=== PATIENT | female | born 1990 | race Caucasian/White ===

== ENCOUNTER 2025-08-08 10:28 | Emergency (ER) | payer OTHER, SELFPAY ==
--- OUTSIDE RECORDS SUMMARY | 2011-10-18 09:30 | XMS_ITS | Continuity of Care Document ---
Author Organization [facility], [facility] Address [address] [place] [id number] Phone Care Team Providers Care Concrete Polisher Name Role Phone Daquan GEE, Jonas Unavailable Unavailable Allergies, Adverse Reactions, Alerts Substance Reaction Status Criticality No Known allergies Procedures Procedure Date EYE EXAM, EXISTING PATIENT VISION REFRACTION OPTIONAL UPDATE EYE EXAM, EXISTING PATIENT VISION REFRACTION UPDATE Single Vision Lens Anti-reflective coating POSTAGE Advance Directives Directive Yes / No Effective Date File Name No Information Encounters Encounter Description Practice Location Reason(s) For Visit Diagnoses Date Provider Providers Copied on Encounter [facility], [address] [place] [address], [id number], tel:[phone] [facility] Myopia Daquan Mcdaniel. [address] [place] [address], [id number], [place]. tel:[phone] [facility], [address] [place] [address], [id number], tel:[phone] [facility] No Information Aprahamikeyon Era. [address] [place] [address], [id number], [place]. tel:[phone] Family History Family Member Type Diagnosis Age At Onset Problem (finding) No Family history of Re tinal Disorders Problem (finding) No Family history of As thma Problem (finding) No Family history of Ca taracts Problem (finding) No Family history of He art Disease Grandmother Problem (finding) Arthritis Problem (finding) No Family history of St rabismus Grandmother Problem (finding) HBP Problem (finding) No Family history of St roke Problem (finding) No Family history of Gl aucoma Grandmother Problem (finding) Diabetes mellitus Problem (finding) No Family history of Re spiratory Disease Problem (finding) No Family hist ory of Macular Degeneration Payers Payer name Insurance type Covered constitution party ID Authoriza tion(s) [facility] [id number] Social History Type Description Quantity Date Captured Comments Alcohol Use Details Unknown Caffeine Use Details Unknown Tobacco Use Status No Information Smoking Status No Information Smoking Tobacco Use Details Cigarette: No Details Available Cigarette: No Details Available Sex Female Chief Complaint And Reason For Visit No Information Reason For Referral Reason For Referral No Information History Of Present Illness Encounter Date Complaint History Of Prese nt Illness No Information Functional Status Date Functional Assessmen t No Information Instructions Date Instruction Additional Infor brooke - Return in 1-2 years with [facility] f or Ref T & D. Related to Myopia Myopia . Condition: established, stable. - Update gls Rx optional. Eyes look healthy. Pt doing well. Related to Myopia Assessments Type Assessment Date No Information Patient Care Teams Name Effective Dates (start - stop) Status Members No Information
--- OUTSIDE RECORDS SUMMARY | 2022-07-25 13:00 | XMS_ITS | Continuity of Care Document ---
Author Organization [employer] [facility] Address [address] [facility] [address] [place] [address] Phone Care Team Providers Care Reflesher Name Role Phone Hannah Gold PT Unavailable Unavailable Procedures Procedure Date Therapeutic Exercise Therapeutic Activities Neuromuscular Re-Ed Manual Therapy Therapeutic Activities Neuromuscular Re-Ed Therapeutic Exercise Manual Therapy Therapeutic Activities Manual Therapy Therapeutic Exercise Neuromuscular Re-Ed Therapeutic Activities Neuromuscular Re-Ed Manual Therapy Therapeutic Exercise Neuromuscular Re-Ed Therapeutic Activities Manual Therapy Therapeutic Exercise Therapeutic Activities Therapeutic Exercise Neuromuscular Re-Ed Manual Therapy Neuromuscular Re-Ed Progress Note Therapeutic Activities Therapeutic Exercise Manual Therapy Therapeutic Activities Manual Therapy Neuromuscular Re-Ed Therapeutic Exercise Therapeutic Activities Manual Therapy Therapeutic Exercise Neuromuscular Re-Ed Therapeutic Exercise Therapeutic Activities Neuromuscular Re-Ed Manual Therapy Therapeutic Exercise Neuromuscular Re-Ed Therapeutic Activities Manual Therapy Therapeutic Activities Neuromuscular Re-Ed Manual Therapy Therapeutic Exercise Progress Note Therapeutic Activities Neuromuscular Re-Ed Therapeutic Exercise Manual Therapy Neuromuscular Re-Ed Manual Therapy Therapeutic Activities Therapeutic Exercise Therapeutic Activities Neuromuscular Re-Ed Therapeutic Exercise Manual Therapy Neuromuscular Re-Ed Therapeutic Activities Manual Therapy Therapeutic Exercise PT Evaluation Moderate Complexity Therapeutic Activities Manual Therapy Therapeutic Exercise Advance Directives Directive Yes / No Effective Date File Name No Information Encounters Encounter Description Practice Location Reason(s) For Visit Diagnoses Date Provider Providers Copied on Encounter [facility], [address], [id number], tel:[phone] [place] No Information Alla Young. . Referring Provider: Gwen Fernández, [address], [place], [address]. tel:[phone] [facility], [address], [id number], tel:[phone] [place] No Information Alla Young. . Referring Provider: Gwen Fernández [address], [place], [address]. tel:[phone] [facility] [facility], [place], [place], [id number], [place] tel:[phone] [place] No Information Richmond Hannah. . Referring Provider: Gwen Pradeep [address], [place], [address]. tel:[phone] [facility], [address], [place], [place], [id number], [place] tel:[phone] [place] No Information Richmond Hannah. . Referring Provider: Gwen Pradeep [address], [place], [address]. tel:[phone] [facility], [address], [place], [place], [id number], [place] tel:[phone] [place] No Information Richmond Hannah. . Referring Provider: Gwen Fernández [address], [place], [address]. tel:[phone] [facility], [address], [place], [place], [id number], [place] tel:[phone] [place] No Information Richmond Hannah. . Referring Provider: Gwen Fernández [address] , [place], [address]. tel:[phone] [facility], [address], [place], [place], [id number], [place] tel:[phone] [place] No Information Richmond Hannah. . Referring Provider: Gwen Fernández [address] , [place], [address]. tel:[phone] [facility], [address], [place], [place], [id number], [place] tel:[phone] [place] No Information Richmond Hannah. . Referring Provider: Gwen Fernández [address], [place], [address]. tel:[phone] [facility], [address], [place], [place], [id number], [place] tel:[phone] [place] No Information Richmond Hannah. . Referring Provider: Gwen Pradeep [address], [place], [address]. tel:[phone] [facility], [address], [place], [place], [id number], [place] tel:[phone] [place] No Information Richmond Hannah. . Referring Provider: Gwen Pradeep [address], [place], [address]. tel:[phone] [facility], [address], [place], [place], [id number], [place] tel:[phone] [place] No Information Richmond Hannah. . Referring Provider: Gwen Fernández [address] , [place], [address]. tel:[phone] [facility], [address], [place], [place], [id number], [place] tel:[phone] [place] No Information Richmond Hannah. . Referring Provider: Gwen Pradeep [address] , [place], [address]. tel:[phone] [facility], [address], [place], [place], [id number], [place] tel:[phone] [place] No Information Richmond Hannah. . Referring Provider: Gwen Fernández [address] , [place], [address]. tel:[phone] [facility], [address], [place], [place], [id number], [place] tel:[phone] [place] No Information Richmond Hannah. . Referring Provider: Gwen Fernández [address], [place], [address]. tel:[phone] [facility], [address], [place], [place], [id number], [place] tel:[phone] [place] No Information Richmond Hannah. . Referring Provider: Gwen Pradeep [address], [place], [address]. tel:[phone] [facility] [address], [place], [place], [id number], tel:[phone] [place] No Information Alla Young. . Referring Provider: Gwen Pradeep [address], [place], [address]. tel:[phone] [facility], [address] [facility] [address], [place], [place], [id number], tel:[phone] [place] No Information Alla Young. . Referring Provider: Gwen Pradeep [address], [place], [address]. tel:[phone] Family History Family Member Type Diagnosis Age At Onset No Information Payers Payer name Insurance type Covered green party ID Authortalisha rodriguez(s) [facility] [id number] Social History Type Description Quantity Date Captured Comments Sex Female Smoking Status No Information Chief Complaint And Reason For Visit No Information Reason For Referral Reason For Referral No Information History Of Present Illness Encounter Date Complaint History Of Prese nt Illness No Information Functional Status Date Functional Assessmen t No Information Instructions Date Instruction Additional Infor mation No Information Assessments Type Assessment Date No Information Patient Care Teams Name Effective Dates (start - stop) Status Members No Information
--- OUTSIDE RECORDS SUMMARY | 2024-02-11 13:00 | XMS_ITS | Continuity of Care Document ---
Author Organization [facility] Address [address] [place] [address] [address] [place] [address] Phone Care Team Providers Care Pathology Laboratory Aide Name Role Phone Dorys Mead PT Unavailable Unavailable Procedures Procedure Date Therapeutic Activities Neuromuscular Re-Ed Therapeutic Exercise Manual Therapy Therapeutic Activities Neuromuscular Re-Ed Therapeutic Exercise Manual Therapy Therapeutic Activities Neuromuscular Re-Ed Therapeutic Exercise Manual Therapy Therapeutic Activities Neuromuscular Re-Ed Therapeutic Exercise Manual Therapy Progress Note Therapeutic Activities Neuromuscular Re-Ed Therapeutic Exercise Manual Therapy Therapeutic Activities Neuromuscular Re-Ed Therapeutic Exercise Manual Therapy Therapeutic Activities Therapeutic Exercise Neuromuscular Re-Ed Manual Therapy Therapeutic Activities Therapeutic Exercise Neuromuscular Re-Ed Manual Therapy Therapeutic Activities Neuromuscular Re-Ed Therapeutic Exercise Manual Therapy Therapeutic Activities Neuromuscular Re-Ed Therapeutic Exercise Manual Therapy Progress Note Therapeutic Activities Neuromuscular Re-Ed Therapeutic Exercise Manual Therapy Therapeutic Activities Neuromuscular Re-Ed Therapeutic Exercise Manual Therapy Therapeutic Activities Neuromuscular Re-Ed Therapeutic Exercise Manual Therapy Therapeutic Activities Neuromuscular Re-Ed Therapeutic Exercise Manual Therapy Therapeutic Activities Neuromuscular Re-Ed Manual Therapy Therapeutic Exercise Therapeutic Activities Neuromuscular Re-Ed Therapeutic Exercise Manual Therapy Therapeutic Activities Neuromuscular Re-Ed Therapeutic Exercise Manual Therapy Therapeutic Activities Neuromuscular Re-Ed Therapeutic Exercise Manual Therapy Therapeutic Activities Neuromuscular Re-Ed Therapeutic Exercise Manual Therapy Therapeutic Activities Neuromuscular Re-Ed Therapeutic Exercise Manual Therapy Therapeutic Activities Neuromuscular Re-Ed Therapeutic Exercise Manual Therapy Progress Note Therapeutic Activities Neuromuscular Re-Ed Therapeutic Exercise Manual Therapy PT Evaluation Low Complexity Therapeutic Activities Neuromuscular Re-Ed Therapeutic Exercise Manual Therapy Advance Directives Directive Yes / No Effective Date File Name No Information Encounters Encounter Description Practice Location Reason(s) For Visit Diagnoses Date Provider Providers Copied on Encounter [facility], [address], [id number], tel:[phone] [place] No Information [place] D[place]. . [facility], [address], [id number], tel:[phone] [place] No Information [place] D[place]s. . [facility], [address], [id number], tel:[phone] [place] No Information [place] D[place]s. . [facility], [address], [id number], tel:[phone] [place] No Information [place] Dorys. . [facility], [address], [id number], tel:[phone] [place] No Information [place] D[place]. . [facility], [address], [id number], tel:[phone] [place] No Information [place] D[place]. . [facility], [address], [id number], tel:[phone] [place] No Information [place] D[place]s. . [facility], [address], [id number], tel:[phone] [place] No Information [place] D[place]. . [facility], [address] [address], [place], [place], [id number], tel:[phone] [place] No Information [place]. . [facility], [address] [address], [place], [place], [id number], tel:[phone] [place] No Information [place]. . [facility], [address] [address], [place], [place], [id number], tel:[phone] [place] No Information [place] D[place]. . [facility], [address] [address], [place], [place], [id number], tel:[phone] [place] No Information [place]. . [facility], [address] [address], [place], [place], [id number], tel:[phone] [place] No Information [place] D[place]s. . [facility], [address] [address], [place], [place], [id number], [place] tel:[phone] [place] No Information [place] D[place]. . [facility], [address], [id number], tel:[phone] [place] No Information [place]. . [facility], [address], [id number], [place] tel:[phone] [place] No Information [place] D[place]. . [employer], [address] [address], [place], [place], [id number], tel:[phone] [place] No Information [place] D[place]s. . [facility], [address], [id number], tel:[phone] [place] No Information [place] D[place]. . [facility], [address] [place] [address], [id number], tel:[phone] [place] No Information [place] Dorys. . [facility], [address] [place] [address] [facility], [id number], tel:[phone] [place] No Information [place] Dorys. . [facility], [address] [place] [address], [id number], tel:[phone] [place] No Information [place] Dorys. . [facility], [address] [place] [address], [id number], tel:[phone] [place] No Information [place] Dorys. . [facility], [address] [place] [address] [address] [place] [address], [id number], tel:[phone] [place] No Information [place] Dorys. . Family History Family Member Type Diagnosis Age At Onset No Information Payers Payer name Insurance type Covered democrat ID Authorbrita jennifer(s) [facility] [id number] Social History Type Description Quantity Date Captured [...]
--- OUTSIDE RECORDS SUMMARY | 2025-08-08 10:33 | XMS_ITS | Clinical Summary ---
Author Organization [facility] Address [facility] [place] [address] Care Team Providers Care Odd Shoe Examiner Name Role Phone Blayne Chacon PA-C Primary Care Provider Allergies No known active allergies Medications chlordiazePOXID E (LIBRIUM) 25 MG capsuleIndicati ons:Alcohol abuse with withdrawal (CMS/HCC HHS/[facility]) Take 1 capsule (25 mg total) by mouth every 4 (four) hours as needed (alcohol withdrawal). 30 capsule 01/04/2025 Active pantoprazole EC (PROTONIX) 40 MG tablet Take 1 tablet (40 mg total) by mouth daily. 30 tablet 01/04/2025 Active Social History Tobacco Use Types Packs/Day Years Used Date Smoking Tobacco: Never Smokeless Tobacco: Never Tobacco Cessation:Counseling Given: No Alcohol Use Standard Drinks/Week Comments Yes 0 (1 standard drink = 0.6 oz pure alcohol) history of ETOH relapse last week Comments Unknown Sex and Gender Information Value Date Recorded Sex Assigned at Female 01/04/2025 2:03 PM CDT Legal Sex Female 7:13 PM CDT Gender Identity Not on file Sexual Orientation Not on file Last Filed Vital Signs Vital Sign Reading Time Taken Comments Blood Pressure 137/81 01/04/2025 4:58 PM CDT Pulse 76 01/04/2025 4:58 PM CDT Temperature 37.1 C (98.7 F) 01/04/2025 2:07 PM CDT Respiratory Rate 15 01/04/2025 4:58 PM CDT Oxygen Saturation 99% 01/04/2025 4:58 PM CDT Inhaled Oxygen Concentration - - Weight 71.2 kg (157 lb) 01/04/2025 2:00 PM CDT Height 170.2 cm (5' 7) 01/04/2025 2:00 PM CDT Body Mass Index 24.59 01/04/2025 2:00 PM CDT Plan of Treatment Health Maintenance Due Date Last Done Comments Cervical Cancer Screening Pa p Smear (Age 30 to 64) Every 3 Years 1990 Annual Physical 1993 Hepatitis C 2008 DTaP, Tdap and Td Vaccines ( 1 - Tdap) 2009 Hepatitis A Vaccines (1 of 2 - Risk 2-dose series) 2009 Hepatitis B Vaccines (1 of 3 - 19+ 3-dose series) 2009 HPV Vaccines (1 - 3-dose SCD M series) 2017 Cervical Cancer Screening Pa p with HPV Testing (Age 30 to 64) Every 5 Years 2020 Cervical Cancer Screening with HPV 2020 COVID-19 Vaccine (2023-2 5 season) 2025 Influenza Adult (#1) 2025 Meningococcal B Vaccine Aged Out No l onger eligible based on patient's age to complete this topic Meningococcal Vaccine Aged Out No darío darvin eligible based on patient's age to complete this topic Pneumococcal Vaccine: Pediat rics (0 to 5 Years) and At-Risk Patients (6 to 49 Years) Aged Out No longer eligible b ased on patient's age to complete this topic RSV Immunizations Under 20 Months Aged Out No longer eligible based on patient's age to complete this topic Insurance MEDICAID Care Teams Odd Shoe Examiner Relationship Specialty Start Date End Date Blayne Chacon PA-C [address] [place] [address] PCP - General PHYSICIAN [employer] 01/04/25
[2025-08-08 10:38] VITALS: BP 140/89; PULSE 93; RESP 18; TEMP 36.8; O2SAT 100
--- NOTE | 2025-08-08 10:41 | ED.EXTPRO ---
HPI - Extremity Problem General Chief complaint: Extremity Problem,Nontraumatic Stated complaint: LT Side Shoulder and Pain Source: patient Mode of arrival: ambulatory Limitations: no limitations History of Present Illness HPI Narrative: This is a 35 y/o female that presents to the urgent care today with reports of left shoulder pain for 1 month. patient states she did travel to [place] to see a primary MD 2 weeks ago, she was given muscle relaxer and did not help. She denies any known trauma. 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 she does state she is taking tylenol and ibuprofen for pain that does not help much. denies any neurovascular complications. patient denies any distress. MD Complaint: extremity pain Onset (ago): month(s) Pain Consistency: intermittent Location: left Severity scale (1-10): 4 Quality: aching and dull Radiation: none Relieving factors: nothing Exacerbating factors: nothing Context: recent travel Related Data Home Medications ?Medication ?Instructions ?Recorded ?Confirmed ?Last Taken ?Type buspirone 10 mg tablet 10 mg PO BID 08/08/25 08/08/25 Unknown History gabapentin 300 mg capsule 300 mg PO TID 08/08/25 08/08/25 Unknown History Allergies Allergy/AdvReac Type Severity Reaction Status Date / Time No Known Allergies Allergy Verified 08/08/25 10:35 Exam Const: General: cooperative, healthy appearing, comfortable, no acute distress, well developed, alert, awake and Physically active Nutritional Appearance: average body habitus Orientation/consciousness: oriented to person, oriented to place, oriented to time and patient oriented x3 Limitations: no limitations HENMT: Head: normal to inspection and normocephalic Ears: hearing grossly normal bilaterally Eyes: General: appearance normal, both eyes and all related structures Visual Sorensen: normal visual sorensen by confrontation Eyelids: eyelids normal Conjunctivae: conjunctivae normal Neck: Neck: normal visual inspection, full ROM and no lymphadenopathy Resp: Effort & Inspection: normal respiratory effort and able to speak in complete sentences Auscultation: clear to auscultation bilaterally Cardio: Jugular venous distension: no JVD Rate: regular rate Rhythm: regular rhythm Heart sounds: S1 normal heart sound present and S2 normal heart sound present GI: Inspection: normal to inspection Percussion: Yes normal to percussion Auscultation: normal bowel sounds Back/Spine/Pelvis: Back: no CVA tenderness Cervical Spine: normal cervical lordosis Skin: General skin exam: normal color and no rashes or lesions noted Lesions: no lesions Rashes: no rashes Trauma: no lacerations or abrasions Wounds: no wounds Neuro: General: oriented to person, oriented to place, oriented to time, patient oriented x3, gait normal and Normal light touch and pain sensation Cranial nerves: Yes CN's II-XII intact bilaterally Cognition (Neuro): normal cognition Speech: normal speech Gait exam (Neuro): Normal gait present Motor exam (neuro): 5/5 motor strength present throughout Sensory Exam: normal sensation Extrem: General: normal to inspection and capillary refill normal Right upper extremity: normal to inspection, full ROM and normal capillary refill Left upper extremity: normal to inspection, normal capillary refill and shoulder/upper arm inspection abnormal and tenderness of the A-C joint (tenderness with posterior rotation) and of the scapula (spasm with ROM and palpation of scapular muscle. ) Psych: Appearance: grossly normal Mental Status: mental status grossly normal Speech and movement: Normal speech and movement present Affect: normal affect Attitude: cooperative Thought process: Normal thought process present Thought content: Yes Normal thought content present Course Course Emergency Course: This is a 35 y/o female that presents to the urgent care today with reports of left shoulder pain for 1 month. patient states she did travel to [place] to see a primary MD 2 weeks ago, she was given muscle relaxer and did not help. She denies any known trauma. 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 she does state she is taking tylenol and ibuprofen for pain that does not help much. denies any neurovascular complications. patient denies any distress. rest. exam noted posterior joint pain with ROM and scapular muscle spasm. Educated on findings and need for further management. Discussed Urgent care capabilities and MRI is not available at an Urgent care. Did discuss outpatient follow up with a Local PCP, list provided. Educated need for Orthopedic referral and management. Discussed further treatment with steroids and muscle relaxer for now. she is agreeable with this plan. Discussed follow up and she agrees. Educate patient to Avoid heavy lifting, pushing pulling wth left shoulder. Follow up with your PCP - inquire about orthopedic referral. Local Primary List given, call insurance and inquire on who locally is covered by your insurance. Continuw with Robaxin a prescribed, do not drive, drink alcohol or operate heavy machinery with robaxin. Continue with prednisone taper as instructed. continue with ibuprofen and tylenol for pain. warm compress to the shoulder. Patient agreeable to plan. patient denies any further needs or concerns to be addressed prior to discharge Level of Care: Express Care Visit Vital Signs Vital signs: Vital Signs Temperature 98.2 F 08/08/25 10:38 Pulse Rate 93 08/08/25 10:38 Respiratory Rate 18 08/08/25 10:38 Blood Pressure 140/89 08/08/25 10:38 Pulse Oximetry 100 08/08/25 10:38 Oxygen Delivery Room Air 08/08/25 10:38 Temperature 98.2 F 08/08/25 10:38 Pulse Rate 93 08/08/25 10:38 Respiratory Rate 18 08/08/25 10:38 Blood Pressure 140/89 08/08/25 10:38 Pulse Oximetry 100 08/08/25 10:38 Oxygen Delivery Room Air 08/08/25 10:38 Discharge Plan Discharge Clinical Impression: Pain in left shoulder Patient Disposition: Home Condition: Stable Instructions: Antibiotic Form Additional Instructions: rest. Avoid heavy lifting, pushing pulling wth left shoulder. Follow up with your PCP - inquire about orthopedic referral. Local Primary List given, call insurance and inquire on who locally is covered by your insurance. Continuw with Robaxin a prescribed, do not drive, drink alcohol or operate heavy machinery with robaxin. Continue with prednisone taper as instructed. continue with ibuprofen and tylenol for pain. warm compress to the shoulder Patient Language: Korean Prescriptions: New methocarbamol 500 mg tablet 500 mg PO Q6H Qty: 14 0RF prednisone 20 mg tablet 40 mg PO BID 5 Days Qty: 20 0RF Rx Instructions: 20 mg orally No Action gabapentin 300 mg capsule 300 mg PO TID buspirone 10 mg tablet 10 mg PO BID Follow-up/Referrals: PHYSICIAN,[facility]TAIN [Primary Care Provider, Internal Medicine] Time of Disposition: 10:59 Quality NIHSS Nursing Documentation ED NIHSS nursing documentation: reviewed/agree
== END 2025-08-08 11:00 | disposition home or self-care (01) ==
PROVIDERS: Emergency Provider Nurse Practitioner Family
DX: M25.512 Pain in left shoulder (principal)
CPT/HCPCS: 99213; G0463

== ENCOUNTER 2025-08-15 08:12 | Emergency (ER) | payer OTHER, SELFPAY ==
--- NOTE | ~2025-08-15 | XR_ITS ---
Clinical History: pain without trauma Examination: [id number] Comparison: None Technique: 3 views cervical spine Findings: No acute fracture or listhesis. Straightening of normal cervical lordosis, usually spasm and/or positional. Prevertebral soft tissues within normal limits. Disc spaces maintained. Mild degenerative changes C5-7. Impression: 1. No acute findings. Reviewed, dictated and finalized at location R. Impression: 1. No acute findings.
--- NOTE | ~2025-08-15 | XR_ITS ---
Examination: XR shoulder LT min 2V Clinical History: pain without trauma Comparison: None Technique: 4 views left shoulder Findings/impression: 1. No fracture or dislocation left shoulder. 2. No acute abnormality. Reviewed, dictated and finalized at location R.
--- NOTE | 2025-08-15 08:17 | ED.BACK ---
HPI - Back Pain/Injury General Chief Complaint: Extremity Problem,Nontraumatic Stated Complaint: neck,shoulder pain Patient presents to the Express Care accompanied by spouse with complaints of continued left shoulder and left-sided neck pain. patient was evaluated at this facility on 08/08 and was given prednisone methocarbamol which did help significantly with symptoms. Patient is new to the area and did schedule an appointment with a primary care and will be seeing them in 6 days. Patient was told to come back to the urgent care for refills on medication if pain is worse or not improved with [id number] medications. Patient has been taking consistent Tylenol and ibuprofen. radiation of pain down the left arm but denies any numbness or tingling, headaches, or dizziness. Patient reports she is on the gabapentin for anxiety and seizure control- Denies any reports of chronic pain. Related Data Home Medications ?Medication ?Instructions ?Recorded ?Confirmed ?Last Taken ?Type buspirone 10 mg tablet 10 mg PO BID 08/08/25 08/08/25 Unknown History gabapentin 300 mg capsule 300 mg PO TID 08/08/25 08/08/25 Unknown History Allergies Allergy/AdvReac Type Severity Reaction Status Date / Time No Known Allergies Allergy Verified 08/15/25 08:20 Review of Systems Constitutional: Constitutional: Reports as per HPI, Denies chills, Denies fatigue, Denies fever(s) and Denies weakness Eyes: Eyes: Reports no additional eye complaints Cardiovascular: Cardiovascular: Reports no additional cardiovascular complaints Respiratory: Respiratory: Reports no additional respiratory complaints Gastrointestinal: Gastrointestinal: Reports no additional gastrointestinal complaints Genitourinary: Genitourinary: Reports no additional female genitourinary complaints Musculoskeletal: Musculoskeletal: Reports as per HPI, Denies back pain ( Left-sided neck), Reports arthralgias ( left shoulder), Denies joint swelling and Reports muscle cramps Integumentary/Breasts: Skin/Breast: Reports as per HPI, Denies pruritus, Denies erythema and Denies rash Neurologic: Reports as per HPI, Denies dizziness, Denies headache(s), Denies focal weakness, Denies numbness and Denies weakness Psychiatric: Psychiatric: Reports no additional psychiatric complaints Endocrine: Endocrine: Reports no additional endocrine complaints Hematologic/Lymphatic: Hematologic/Lymphatic: Reports no additional hematologic/lymphatic complaints Allergic/Immunologic: Allergic/Immunologic: Reports no additional allergic/immunologic complaints Exam Const: General: healthy appearing and no acute distress Nutritional Appearance: well nourished Orientation/consciousness: patient oriented x3 Limitations: no limitations Neck: Neck: normal visual inspection and no lymphadenopathy Other: cervical tenderness at C6-C7. No edema, ecchymosis redness, rash noted. left-sided paraspinal tenderness over trapezius muscle Resp: Effort & Inspection: normal respiratory effort Auscultation: clear to auscultation bilaterally Cardio: Rate: regular rate Rhythm: regular rhythm Back/Spine/Pelvis: Back: no CVA tenderness Skin: General skin exam: normal color Rashes: no rashes Wounds: no wounds Neuro: General: patient oriented x3, moves all extremities, no meningeal signs, no focal motor deficits and CN's II-XI intact bilaterally Cranial nerves: Yes Nystagmus not present Speech: normal speech Gait exam (Neuro): Normal gait present Extrem: Left upper extremity: shoulder/upper arm inspection abnormal, tenderness, axillary nerve sensory function normal and abnormal ROM; inspection normal, no swelling, ROM limited, no abrasions, no lacerations, no ecchymosis, no crepitus, no foreign bodies, no penetrating wound, no deformity and no unsual warmth Psych: Mental Status: mental status grossly normal Affect: normal affect Attitude: cooperative Course Course Level of Care: Express Care Visit Vital Signs Vital signs: Vital Signs Temperature 98.8 F 08/15/25 08:19 Pulse Rate 80 08/15/25 08:19 Respiratory Rate 18 08/15/25 08:19 Blood Pressure 152/83 H 08/15/25 08:19 Pulse Oximetry 100 08/15/25 08:19 Oxygen Delivery Room Air 08/15/25 08:19 Temperature 98.8 F 08/15/25 08:19 Pulse Rate 80 08/15/25 08:19 Respiratory Rate 18 08/15/25 08:19 Blood Pressure 152/83 H 08/15/25 08:19 Pulse Oximetry 100 08/15/25 08:19 Oxygen Delivery Room Air 08/15/25 08:19 MDM - Back Pain/Injury MDM Narrative Medical decision making narrative: x-rays ordered since no imaging has been done. Spoke with patient about dangers of prednisone taper. From my reading no abnormalities noted on x-rays. Spoke with patient will do diclofenac with continued muscle relaxers and rest with a sling. Educated patient on heat stretch ice and will follow up with new PCP in 6 days The patient was evaluated by myself in the express care. History is obtained from patient who is an independent historian and physical exam was performed. Available medical records were reviewed at this time. Exam findings show no acute concerns or changes; patient is non-toxic appearing and is in no distress. Patient is appropriate for outpatient treatment and follow-up. I have evaluated and discussed social determinants of health with the patient that could potentially impact subsequent diagnosis and treatment plans. Differential diagnosis and treatment plan were discussed with the patient. Patient agrees with discussion and after shared medical decision making agrees with plan of care. All questions were answered to the patient's satisfaction. Differential Diagnosis Differential diagnosis: Likely discitis and other ( Cervical strain, internal injury left shoulder, arthritis) Medical Records Attestation: I reviewed the patient's medical records. Imaging Data Attestation: I personally reviewed and interpreted this imaging study as follows: My impression: no fracture or abnormalities noted. Radiologist's impression: Findings/impression: 1. No fracture or dislocation left shoulder. 2. No acute abnormality. Reviewed, dictated and finalized at location R. Impression: 1. No acute findings. Reviewed, dictated and finalized at location R. Discharge Plan Discharge Clinical Impression: Acute pain of left shoulder, Sprain of cervical neck Patient Disposition: Home Condition: Stable Instructions: Antibiotic Form, Cervical Sprain (ED), Shoulder Pain (ED), Acute Neck Pain (ED) Additional Instructions: your x-rays are negative for fracture abnormality Express Care today. This is likely muscular in nature recommended resting for 2 days then begin applying heat for 20 minutes then gentle range of motion or massaged then ice for 20 minute several times per day. may use the sling as needed to get extra support take diclofenac as directed consistently this will help with inflammation. May use the muscle relaxers as needed this can make you drowsy do not drive, drink alcohol or operate heavy machinery while taking this medication. Follow-up with primary care physician within the next week if symptoms not improved if you notice any significant numbness, tingling, weakness, or neck pain follow-up with emergency room for immediate evaluation. Patient Language: Mohawk Prescriptions: New diclofenac sodium 50 mg tablet,delayed release (DR/EC) 50 mg PO TID PRN (Reason: pain) Qty: 30 0RF methocarbamol 750 mg tablet 750 mg PO TID PRN (Reason: muscle pain) Qty: 30 0RF No Action gabapentin 300 mg capsule 300 mg PO TID buspirone 10 mg tablet 10 mg PO BID Follow-up/Referrals: Benny Mota MD [Primary Care Provider, Internal Medicine] Time of Disposition: 09:15
[2025-08-15 08:19] VITALS: BP 152/83; PULSE 80; RESP 18; TEMP 37.1; O2SAT 100
== END 2025-08-15 09:28 | disposition home or self-care (01) ==
PROVIDERS: Emergency Provider Nurse Practitioner Family; PCP Emergency Medicine
DX: M25.512 Pain in left shoulder (principal); S13.9XXD Sprain of joints and ligaments of unspecified parts of neck, subsequent encounter; X58.XXXD Exposure to other specified factors, subsequent encounter
CPT/HCPCS: 72040; 73030; 99214; A4565; G0463

== ENCOUNTER 2025-09-25 08:45 | Outpatient (CLI) | payer OTHER, SELFPAY ==
--- NOTE | 2025-09-25 08:54 | ECHO_ITS ---
Patient Info Name: Cecile Bone Age: 35 years : 1990 Gender: Female Ht: 67 in Wt: 160 lbs BSA: 1.86 m2 HR: 65 bpm BP: 134 / 86 mmHg Technical Quality: Good Exam Date: 09/25/2025 9:01 AM Patient Status: O Admit Date: 09/25/2025 Exam Type: CA echo doppler color flow Complete two-dimensional, color flow and Doppler transthoracic echocardiogram is performed. Side Guider: Lacy Sargent Attending Provider: Benny Mota MD Summary 1. Complete two-dimensional, color flow and Doppler transthoracic echocardiogram is performed. 2. Left ventricular chamber dimension is normal. 3. Left ventricular systolic function is normal, estimated at 60-65. 4. The left ventricular diastolic function is normal. 5. E/e' 8 is minimally elevated. 6. There is trace tricuspid valve regurgitation. 7. No pulmonary hypertension, estimated pulmonary arterial systolic pressure is 25 mmHg. Left Ventricle E/e' 8 is minimally elevated. Left ventricular chamber dimension is normal. Left ventricular systolic function is normal, estimated at 60-65. The left ventricular diastolic function is normal. Right Ventricle Right ventricular chamber dimension is normal. Right ventricular systolic function is normal. Left Atria Left atrial chamber dimension is normal. Right Atria Right atrial chamber dimension is normal. Aortic Valve The aortic valve is trileaflet. There is no aortic valve stenosis. There is no aortic valve regurgitation. Pulmonic Valve There is no pulmonic regurgitation. Mitral Valve There is no mitral valve stenosis. There is no mitral valve regurgitation. Tricuspid Valve There is trace tricuspid valve regurgitation. No pulmonary hypertension, estimated pulmonary arterial systolic pressure is 25 mmHg. Pericardium/Pleural There is no pericardial effusion. Inferior Vena Cava Normal inferior vena cava with >50% collapse upon inspiration consistent with normal right atrial pressure, 5 mmHg. Aorta The aortic root size at the sinus of Valsalva is normal. Left Ventricular Outflow Tract Name Value Normal LVOT 2D LVOT Diameter 1.9 cm LVOT Doppler LVOT Peak Velocity 127 cm/s LVOT Peak Gradient 6 mmHg LVOT Mean Gradient 3 mmHg LVOT VTI 27 cm LVOT VTI/AV VTI Ratio 1.1 LVOT Stroke Volume 78 ml LVOT CO 5.3 l/min LVOT CI 2.9 l/min/m2 Pulmonic Valve Name Value Normal RVOT Doppler RVOT Peak Velocity 89 cm/s RVOT Peak Gradient 3 mmHg PV Doppler PV Peak Velocity 110 cm/s PV Peak Gradient 5 mmHg Mitral Valve Name Value Normal MV Diastolic Function MV E Peak Velocity 107 cm/s MV A Peak Velocity 48 cm/s MV E/A 2.2 MV Decel Time (PW) 193 ms Tricuspid Valve Name Value Normal TV Regurgitation Doppler TR Peak Velocity 224 cm/s TR Peak Gradient 18 mmHg Estimated PAP/RSVP RA Pressure 5 mmHg <=5 PA Systolic Pressure 25 mmHg <36 RV Systolic Pressure 25 mmHg <36 Aorta Name Value Normal Ascending Aorta Ao Root Diameter (MM) 2.4 cm Ao Root Diam Index (MM) 1.3 cm/m2 Aortic Valve Name Value Normal AV Doppler AV Peak Velocity 126 cm/s AV Peak Gradient 6 mmHg AV Mean Gradient 3 mmHg AV VTI 24 cm AV Area (Cont Eq VTI) 3.3 cm2 >=3.0 AV Area (Cont Eq [place]) 2.9 cm2 AV DI (Nazario) 1.00 AV Regurgitation 2D LVOT Area 2.9 cm2 Ventricles Name Value Normal LV Dimensions 2D/MM IVS Diastolic Thickness (2D) 0.7 cm 0.6-1.0 IVS Diastole Thickness (MM) 0.8 cm 0.6-0.9 LVID Diastole (2D) 3.9 cm 3.8-5.2 LVID Diastole (MM) 4.7 cm 3.8-5.2 LVIW Diastolic Thickness (2D) 0.9 cm 0.6-0.9 LVIW Diastolic Thickness (MM) 0.8 cm 0.6-0.9 LVID Systole (2D) 2.6 cm 2.2-3.5 LVID Systole (MM) 3.0 cm 2.2-3.5 LVOT Diameter 1.9 cm LV Mass (2D Cubed) 91.03 g 67.00-162.00 LV Mass Index (2D Cubed) 49 g/m2 43-95 Relative Wall Thickness (2D) 0.47 <=0.42 LV Mass (MM Cubed) 125.58 g 67.00-162.00 LV Mass Index (MM Cubed) 67 g/m2 43-95 Relative Wall Thickness (MM) 0.35 LV Fractional Shortening/Ejection Fraction 2D/MM LV Fractional Shortening (2D) 34 % 27-45 LV Fractional Shortening (MM) 38 % 27-45 LV EF (MM Teichholz) 68 % LV EF (2D Teichholz) 64 % LV Diastolic Volume (4C MOD) 81 ml LV EF (4C MOD) 48 % LV Diastolic Volume (2C MOD) 98 ml LV EF (2C MOD) 57 % LV Diastolic Volume (BP MOD) 90 ml 46-106 LV Diastolic Volume Index (BP MOD) 48 ml/m2 29-61 LV Systolic Volume (BP MOD) 42 ml 14-42 LV Systolic Volume Index (BP MOD) 23 ml/m2 8-24 LV EF (BP MOD) 53 % 54-74 LV Diastolic Length (4C) 8.1 cm LV Systolic Length (4C) 7.4 cm LV Stroke Volume (4C MOD) 39 ml Atria Name Value Normal LA Dimensions LA Dimension (MM) 3.2 cm 2.7-3.8 LA Volume (4C A-L) 43 ml LA Volume (BP A-L) 50 ml RA Dimensions RA Systolic Major [place] Length (4C) 5.0 cm 2.2-2.8 RA Area (4C) 13.9 cm2 <=18.0 Report Signatures
== END 2025-09-25 08:46 | disposition home or self-care (01) ==
LOC: ANHCARD 08:48
PROVIDERS: PCP Emergency Medicine; Visit Provider Emergency Medicine
DX: R01.1 Cardiac murmur, unspecified (principal)
CPT/HCPCS: 93306